=== PATIENT | male | born 1970 | race Caucasian/White ===

== ENCOUNTER 2023-10-19 11:47 | Day surgery (SDC) | payer BC ==
[~2023-10-19] VITALS: Ht 172.7 cm; Wt 105.8 kg
[~2023-10-19 11:47] MED LIST: CEFD300; SERT100; TAMS.4ER
[2023-10-19 13:22] VITALS: BP 136/79
== END 2023-10-19 13:27 | disposition home or self-care (01) ==
LOC: ORSCSDS 11:47
PROVIDERS: Surgery
PROC: 0DJD8ZZ Inspection of Lower Intestinal Tract, Via Natural or Artificial Opening Endoscopic (ICD-10-PCS; principal; 2023-10-19 13:00)
DX: Z12.11 Encounter for screening for malignant neoplasm of colon (principal); G47.33 Obstructive sleep apnea (adult) (pediatric); Z68.35 Body mass index [BMI] 35.0-35.9, adult; F41.9 Anxiety disorder, unspecified; Z79.899 Other long term (current) drug therapy
CPT/HCPCS: J2405; J2704; J7120